=== PATIENT | female | born 1950 | race Caucasian/White ===

== ENCOUNTER 2016-10-21 01:39 | Emergency (ER) | payer OTHER ==
--- NOTE | 2016-10-21 04:57 | ED ORDER SUMMARY ---
..... Patient: LARRY DONOHUE OrderSheet [facility] VisitID: [id number] [place] [address] 66y, F Registration Date/Time: 10/21/2016 ORDER SHEET Weight: 61.6 kg (stated) Allergies: No Known Drug Allergy GENERAL ORDERS: Chest 1V Urgent (02:10/21/2016 HSoule per protocol) (2:12 RKaruga) Risk Prevention Engineer (Continuous) (chest pain ) (02:10/21/2016 HSoule per protocol) (2:07 HSoule) UA-Culture if indicated Urgent (02:10/21/2016 HSoule per protocol) (Ack 2:35 RKaruga) (4:03 HSoule) Cardiac Panel Stat (02:10/21/2016 HSoule per protocol) (Ack 2:35 RKaruga) (4:03 HSoule) Amylase Urgent (02:10/21/2016 HSoule per protocol) (Ack 2:35 RKaruga) (4:03 HSoule) Lipase Urgent (02:10/21/2016 HSoule per protocol) (Ack 2:35 RKaruga) (4:03 HSoule) PT with INR Urgent (02:07 10/21/2016 HSoule per protocol) (Ack 2:35 RKaruga) (4:03 HSoule) EKG - ER Stat (02:10/21/2016 HSoule per protocol) (2:07 HSoule) Pulse oximeter (02:07 10/21/2016 HSoule per protocol) (2:07 HSoule) POC Glucose (02:10/21/2016 HSoule per protocol) (2:07 HSoule) D-Dimer Urgent (02:19 10/21/2016 Sarah Neal) (Ack 2:35 RKaruga) (4:03 HSoule) CTA Thorax/Abdomen/Pelvis (Yes) (1.1) Urgent (02:34 10/21/2016 Sraah Neal) (Ack 2:35 RKaruga) (3:10 RFay) MEDICATION ORDERS: - (Magnesium Oxide 400 mg PO x 1 now) (02:37 10/21/2016 Sarah Neal) (Ack 2:41 HSoule) (3:11 HSoule) Acetaminophen PO 1,000 mg (NOW) (03:35 10/21/2016 Sarah Neal) (Ack 3:47 HSoule) (Cancelled: Patient Refusal5:52 HSoule) IV FLUIDS: Zofran IV 4 mg (NOW) (02:07 10/21/2016 HSoule per protocol) (2:08 HSoule) IV Saline Lock (02:07 10/21/2016 HSoule per protocol) (2:08 HSoule) Labetalol IV 20 mg (HIGH ALERT MEDICATION, NOW) (02:09 10/21/2016 Sarah Neal) (Ack 2:18 HSoule) (2:22 HSoule) Zofran IV 4 mg (NOW) (02:36 10/21/2016 Sarah Neal) (Ack 2:36 HSoule) (2:41 HSoule) Morphine IV 4 mg (HIGH ALERT MEDICATION, NOW) (02:43 10/21/2016 Sarah Neal) (Ack 3:11 HSoule) (3:11 HSoule) Labetalol IV 20 mg (HIGH ALERT MEDICATION, NOW) (03:35 10/21/2016 Sarah Neal) (Ack 3:47 HSoule) (3:59 HSoule) ORDER SHEET NOTES: [Electronically signed by Jenna Abel (05:52 10/21/2016)] [Electronically signed by Oswaldo Baker Dr. (08:39 10/22/2016)] [Electronically locked/signed by Jenna Abel (05:52 10/21/2016)]
--- NOTE | 2016-10-21 04:57 | ED CLINICAL REPORT ---
Clinical Report - Physicians/Mid Levels [facility] [address] [place] [address] 10/21/2016 1:41 Patient: LARRY DONOHUE Time Seen: 02:01; initial patient contact. Arrived- By private vehicle. Historian- patient. HISTORY OF PRESENT ILLNESS Chief Complaint: CHEST PAIN. At its maximum, severity described as moderate. When seen in the E.D., severity described as moderate. Modifying factors- worsened by food. Not relieved by anything. This started about 5 days ago and is still present. It was gradual in onset. The patient cannot recall the circumstances at the onset. It is described as "pain". No radiation. It is described as located in the epigastric area. The patient has had nausea and vomiting. No difficulty breathing or diaphoresis. Similar symptoms previously: None. Recent medical care: Not recently seen/assessed. REVIEW OF SYSTEMS No fever, chills, pedal edema or calf pain. She has had moderate, crampy, intermittent abdominal pain. The pain is described as generalized. All systems otherwise negative, except as recorded above. PAST HISTORY Diabetes Mellitus. ADDITIONAL SURGERIES: Bariatric Surgery. Cholecystectomy. Hip Surgery. Shoulder Surgery. Medications: None. Allergies: No Known Drug Allergy. SOCIAL HISTORY Former smoker. No alcohol use or drug use. ADDITIONAL NOTES The nursing notes have been reviewed. PHYSICAL EXAM Vital Signs: 10/21/2016 01:43 BP: 212/95. HR: 66. RR: 20. O2 saturation: 97%. Temp: 98.3 F. Pain level now: 10. Have been reviewed. Hypertensive. Heart rate normal. Respiratory rate normal. Temperature normal. Oxygen saturation normal. Appearance: Alert. Oriented X3. No acute distress. Eyes: Eyes normal inspection. ENT: Pharynx normal. Neck: Normal inspection. No JVD. CVS: Normal heart rate and rhythm. Heart sounds normal. Pulses normal. Respiratory: No respiratory distress. Breath sounds normal. Abdomen: Soft and nontender. Bowel sounds normal. No organomegaly. No mass. Skin: Skin warm and dry. Normal skin color. Extremities: No calf tenderness. No lower extremity edema. Neuro: Oriented X 3. LABS, X-RAYS, AND EKG EKG: EKG time: (0156). No acute process. No acute ischemia. Normal EKG. Normal sinus rhythm. Rate: 64. Normal P waves. Normal ALMA ROSA. Normal QRS complex. Normal axis. Normal ST and T waves, QT and QTc. Prior EKG unavailable. The study has been interpreted contemporaneously by me. The study has been independently viewed by me. The EKG appears to be a good tracing. Interpretation time: 0156. Chest X-ray: No acute disease. Moderate hyperinflation present on the right and left with flattening of the diaphragm. Consistent with COPD. No infiltrate. Views: AP. Technique: good. The X-rays were independently viewed by me and interpreted contemporaneously by me. Prior films were not available for comparison. Chest CT: (Abd and pelvis: No PE, dissection, or aneurysm. Mild ascites. Gastroenteritis). Chest CT performed with contrast. The study was independently viewed by me, interpreted by the radiologist and discussed with the radiologist. Prior studies were not available for comparison. Laboratory Tests: UA-Culture if indicated: (KRAIG: 10/21/2016 03:40) ( MsgRcvd 10/21/2016 04:01) Final results Test Result Flag Units (Reference) URINE COLOR YELLOW URINE APPEARANCE CLEAR URINE GLUCOSE NEGATIVE (NEGATIVE) URINE BILIRUBIN NEGATIVE (NEGATIVE) URINE KETONE NEGATIVE (NEGATIVE) URINE SPECIFIC GRAVITY 1.020 (1.010-1.030) URINE PH 6.0 (5.0-8.0) URINE PROTEIN 3+ (NEGATIVE) URINE UROBILINOGEN 0.2 EU/dL (0.2-1.0) URINE NITRITE NEGATIVE (NEGATIVE) URINE BLOOD 2+ (NEGATIVE) URINE LEUK ESTERASE NEGATIVE (NEGATIVE) URINE RBC 1-3 rbc/hpf (0-1) URINE WBC 0-1 wbc/hpf (0-1) URINE EPITHELIAL CELLS 0-1 EPI/hpf (0-5) URINE BACTERIA NONE SEEN (NONE SEEN) URINE COMMENT CULT NOT INDICATED URINE CULTURES ARE SET-UP BASED ON THE FOLLOWING CRITERIA:POSITIVE NITRITEPOSITIVE LEUKOCYTE ESTERASEGREATER THAN 10 WHITE BLOOD CELLSMODERATE (2+) OR GREATER BACTERIA CBC w Diff: (KRAIG: 10/21/2016 02:00) ( MsgRcvd 10/21/2016 02:23) Final results Test Result Flag Units (Reference) WHITE BLOOD COUNT 8.1 K/uL (4.5-11.5) RED BLOOD COUNT 4.16 M/uL (4.00-5.20) HEMOGLOBIN 10.9 L gm/dL (12.0-16.0) HEMATOCRIT 32.8 L % (36.0-46.0) MEAN CELL VOLUME 79 L fL (80-100) MEAN CORPUSCULAR HGB 26 pg (26-34) MEAN CORPUSCULAR HGB CONC 33 g/dL (31-37) RED CELL DISTRIBUTION WIDTH 16.1 H % (11.6-14.8) PLATELET COUNT 181 K/uL (150-400) NEUTROPHIL % 70.0 % (50-75) LYMPH % 22.2 L % (25-40) MONO % 6.8 % (3-14) EOSINOPHIL % 0.7 % (0-4) BASOPHIL % 0.3 % (0-2) [id number]: (KRAIG: 10/21/2016 02:00) ( [facility] [place]:33) Final results Test Result Flag Units (Reference) D-DIMER QUANTITATIVE 1.27 H ug/mLFEU (0.27-0.52) The primary value of this quantitative assay relates toits negative predictive value (i.e. exclusion) of pulmonaryembolism/deep vein thrombosis/DIC.Elevated levels of d-dimer may also occur with:, age, cancer, inflammation, liver disease,post-op, infection, hematoma, coronary disease, peripheralarteriopathy, bleeding disorders and thrombolytic treatment.Results should be correlated with other clinical andradiological data.Testing Methodology: Latex Immunoassay PT with INR: (KRAIG: 10/21/2016 02:00) ( [facility] [place] 10/21/2016 02:23) Final results Test Result Flag Units (Reference) INR 0.9 (0.8-1.2) Low Intensity Therapy: INR 1.5-2.0 PT range 18.5-23.1Mod.Intensity Therapy: INR 2.0-3.0 PT range 23.1-31.5High Intensity Therapy: INR 2.5-3.5 PT range 27.4-35.5High Intensity Therapy 2: INR 3.0-4.0 PT range 31.5-39.3 Lipase: (KRAIG: 10/21/2016 02:00) ( MsgRcvd 10/21/2016 02:48) Final results Test Result Flag Units (Reference) LIPASE 93 U/L (73-393) AMYLASE 74 U/L (25-115) CHEM 13 PANEL: (KRAIG: 10/21/2016 02:00) ( MsgRcvd 10/21/2016 02:33) Final results Test Result Flag Units (Reference) GLUCOSE 177 H mg/dL (70-110) BUN 19 H mg/dL (7-18) CREATININE 1.1 mg/dL (0.6-1.3) Estimated GFR 52.82 mL/min Estimated GFR- >60 mL/min Note: Persistent reduction over 3 months in eGFR<60 mL/min/1.73 m2 defines CKD. Patients with eGFR values>=60 mL/min/1.73 m2 may also have CKD if evidence ofpersistent proteinuria. Additional information may be foundat www.kidney.org. SODIUM 140 mmol/L (136-145) POTASSIUM 3.8 mmol/L (3.5-5.1) CHLORIDE 107 mmol/L (98-107) CARBON DIOXIDE 24 mmol/L (21-32) CALCIUM 7.7 L mg/dL (8.5-10.1) TOTAL PROTEIN 5.7 L g/dL (6.4-8.2) ALBUMIN 2.3 L g/dL (3.3-5.0) BILIRUBIN, TOTAL 0.3 mg/dL (0.0-1.0) ALKALINE PHOSPHATASE 241 H U/L (46-116) AST (SGOT) 28 U/L (15-37) ALT (SGPT) 25 U/L (12-78) MAGNESIUM 1.5 L mg/dL (1.8-2.4) CPK 153 U/L (24-260) TROPONIN I <0.05 ng/mL (0.00-1.5) TROPONIN REFERENCE RANGE:<0.1 NEGATIVE0.1-1.5 INDETERMINANT>1.5 POSITIVE . PROGRESS AND PROCEDURES Disposition: Discharged home in good and improved condition. Condition: good. CLINICAL IMPRESSION Chest wall pain .12 lead EKG performed. Uncontrolled essential hypertension. INSTRUCTIONS Follow a low salt diet. Your Current Medications: CONTINUE TAKING THE FOLLOWING MEDICATIONS: None*. Prescription Medications: Hydrocodone/APAP 5mg / 325mg: take 1 orally every 6 hours as needed for pain. Dispense twelve (12). No refill. Zofran (orally disintegrating tablets) 4 mg: take 1 orally every 6 hours as needed for nausea and vomiting. Dispense ten (10). No refill. Substitution is permissible. Amlodipine 5 mg: take 1 orally every 24 hours. Dispense fifteen (15). No refills. Lomotil: take 2 tablets orally every 6 hours as needed for control of diarrhea until symptoms resolve. Do not take more than 8 tablets per day. Dispense sixteen (16). No refills. Substitution is permissible. Follow-up: Follow up with your doctor in about two days. Call for an appointment. Screening today revealed the patient's blood pressure to be in the hypertensive range. The patient should follow up with a primary care provider for blood pressure management. (Electronically signed by Oswaldo Baker Dr. 10/22/2016 8:39)
--- NOTE | 2016-10-21 04:57 | ED ORDER SUMMARY ---
..... Patient: LARRY DONOHUE OrderSheet [facility] VisitID: [id number] [place] [address] 66y, F Registration Date/Time: 10/21/2016 ORDER SHEET Weight: 61.6 kg (stated) Allergies: No Known Drug Allergy GENERAL ORDERS: Chest 1V Urgent (02:10/21/2016 HSoule per protocol) (2:12 RKaruga) Assistant Men'S Lacrosse Coach (Continuous) (chest pain ) (02:10/21/2016 HSoule per protocol) (2:07 HSoule) UA-Culture if indicated Urgent (02:10/21/2016 HSoule per protocol) (Ack 2:35 RKaruga) (4:03 HSoule) Cardiac Panel Stat (02:10/21/2016 HSoule per protocol) (Ack 2:35 RKaruga) (4:03 HSoule) Amylase Urgent (02:10/21/2016 HSoule per protocol) (Ack 2:35 RKaruga) (4:03 HSoule) Lipase Urgent (02:10/21/2016 HSoule per protocol) (Ack 2:35 RKaruga) (4:03 HSoule) PT with INR Urgent (02:07 10/21/2016 HSoule per protocol) (Ack 2:35 RKaruga) (4:03 HSoule) EKG - ER Stat (02:10/21/2016 HSoule per protocol) (2:07 HSoule) Pulse oximeter (02:07 10/21/2016 HSoule per protocol) (2:07 HSoule) POC Glucose (02:10/21/2016 HSoule per protocol) (2:07 HSoule) D-Dimer Urgent (02:19 10/21/2016 Sarah Neal) (Ack 2:35 RKaruga) (4:03 HSoule) CTA Thorax/Abdomen/Pelvis (Yes) (1.1) Urgent (02:34 10/21/2016 Sarah Neal) (Ack 2:35 RKaruga) (3:10 RFay) MEDICATION ORDERS: - (Magnesium Oxide 400 mg PO x 1 now) (02:37 10/21/2016 Sarah Neal) (Ack 2:41 HSoule) (3:11 HSoule) Acetaminophen PO 1,000 mg (NOW) (03:35 10/21/2016 Sarah Neal) (Ack 3:47 HSoule) (Cancelled: Patient Refusal5:52 HSoule) IV FLUIDS: Zofran IV 4 mg (NOW) (02:07 10/21/2016 HSoule per protocol) (2:08 HSoule) IV Saline Lock (02:07 10/21/2016 HSoule per protocol) (2:08 HSoule) Labetalol IV 20 mg (HIGH ALERT MEDICATION, NOW) (02:09 10/21/2016 Sarah Neal) (Ack 2:18 HSoule) (2:22 HSoule) Zofran IV 4 mg (NOW) (02:36 10/21/2016 Sarah Neal) (Ack 2:36 HSoule) (2:41 HSoule) Morphine IV 4 mg (HIGH ALERT MEDICATION, NOW) (02:43 10/21/2016 Sarah Neal) (Ack 3:11 HSoule) (3:11 HSoule) Labetalol IV 20 mg (HIGH ALERT MEDICATION, NOW) (03:35 10/21/2016 Sarah Neal) (Ack 3:47 HSoule) (3:59 HSoule) ORDER SHEET NOTES: [Electronically signed by Jenna Abel (05:52 10/21/2016)] [Electronically signed by Oswaldo Baker Dr. (08:39 10/22/2016)] [Electronically locked/signed by Jenna Abel (05:52 10/21/2016)]
--- NOTE | 2016-10-21 04:57 | ED NURSING NOTES ---
Clinical Report - Nurses [facility] [address] [place] [address] 10/21/2016 1:41 Patient: LARRY DONOHUE [facility] [id number] TRIAGE Triage time 01:43 Oct 21 2016. Acuity: LEVEL 2. Chief Complaint: (Chest pain/abdominal pain). SEPSIS SCREEN: Sepsis Screen: negative. Negative (no infection suspected/documented). YAMILET COMA SCORE: Yamilet Coma Scale: 15- eyes open spontaneously (4); best verbal response- oriented x 4 (5); best motor response- obeys commands (6). --01:47 Jenna Abel 01:43 10/21/16. BP: 212/95 taken on the left arm. HR: 66. RR: 20. O2 saturation: 97% on room air. Temp: 98.3 F (oral). Pain level now: 10. --01:47 Jenna Abel 01:47 10/21/16. BP: 181/107 taken on the right arm. --01:47 Jenna Abel. Weight: 61.6 kg stated. Height/Length: 66 inches Per Patient. BMI: 21.9. --01:45 Jenna Abel. Medications None. --01:44 Jenna Abel. Medication/allergy information source: the patient. --01:47 Jenna Abel. Allergies No Known Drug Allergy. --01:45 Jenna Abel. History Arrived by private vehicle. Historian: patient. Unaccompanied. Primary physician (darlyn). Onset. (5 days). ( Patient reports pain from her neck to her pelvic area. She reports the pain as severe and accompanied by vomiting. She reports being unable to keep anything down. She denies cardiac history.). She has had severe vomiting. PAST MEDICAL HX: Immunizations: up-to-date. The patient is post-menopausal. SOCIAL HX: Former smoker, end date 1991. No alcohol use. No infectious disease exposure. ABUSE ASSESSMENT: No report of abuse. FALL RISK ASSESSMENT: Fall risk assessment completed. No fall risk identified. NUTRITIONAL RISK ASSESSMENT: The nutritional risk assessment revealed no deficiencies. FUNCTIONAL ASSESSMENT: Functional assessment: no impairments noted. LEARNING NEEDS ASSESSMENT: The learning needs assessment revealed no barriers. SKIN INTEGRITY ASSESSMENT: Skin integrity risk assessment completed. No skin integrity risk identified. --01:47 Jenna Abel. PROBLEMS: Diabetes Mellitus. --01:45 Jenna Abel. ADDITIONAL SURGERIES: Bariatric Surgery. Cholecystectomy. Hip Surgery. Shoulder Surgery. --01:45 Jenna Abel. Interventions ID band on patient. To treatment room. --01:47 Jenna Abel. PHYSICAL ASSESSMENT 02:06 10/21/16. Ambulatory to room. Patient gowned. GENERAL / NEURO / PSYCH: Alert. Oriented X 4. Appears in pain. HEENT: No facial asymmetry noted. Mucous membranes are pink. RESPIRATORY: Respirations not labored. CVS: Normal sinus rhythm noted. GI / : Abdomen nontender. Abdominal tenderness diffusely. Guarding present. SKIN: Skin is warm and dry. ( petechia and bruising present on arms.). --02:06 Jenna Abel. NURSING PROGRESS NOTES 01:58 10/21/2016 Site #1 started via IV in the left forearm with an 20g angiocath, with aseptic technique and good blood return; one attempt. Blood drawn: rainbow set. Labeled in the presence of the patient and sent to the lab. Saline lock flushed with 10 mL saline. --02:08 Jenna Abel 02:08 10/21/2016 Zofran (Ondansetron HCl) IVP 4 mg given over 2 minute(s) via site #1. Allergies verified and confirmed 5 rights. IV patency established. IV site checked: no pain, redness, or swelling. IV flushed thoroughly pre- and post-medication administration. IVP given by RN. --02:08 Jenna Abel ( POC glucose 196 mg/dl). --02:08 Jenna Abel 02:23 10/21/16. BP: 210/62. --02:23 Jenna Abel 02:10 10/21/16. The initial plan of care for this patient has been created. Oxygen administered by nasal cannula at 2 liters. Pulse oximeter and NIBP monitor placed on patient; monitor alarms on. Patient gowned. Two patient identifiers checked. Call light placed in reach. Side rails up x 1. Bed placed in lowest position. Brakes of bed on. Patient ready for evaluation- chart flagged and ED physician notified. ( Provider notified of patient vitals and pain.). --02:23 Jenna Abel 02:22 10/21/2016 Labetalol IVP 20 mg given over 2 minute(s) via site #1. Allergies verified and confirmed 5 rights. IV patency established. IV site checked: no pain, redness, or swelling. IV flushed thoroughly pre- and post-medication administration. IVP given by RN. --02:22 Jenna Abel 02:23 10/21/16. BP: 166/70. HR: 62. RR: 18. O2 saturation: 98% on nasal cannula at 2 liters/minute. --02:24 Jenna Abel 02:36 10/21/16. BP: 173/64. HR: 73. RR: 20. O2 saturation: 100% on room air. Pain level now: 11/26. --02:37 Jenna Abel 02:41 10/21/2016 Zofran (Ondansetron HCl) IVP 4 mg given over 2 minute(s) via site #1. Allergies verified and confirmed 5 rights. IV patency established. IV site checked: no pain, redness, or swelling. IV flushed thoroughly pre- and post-medication administration. IVP given by RN. --02:41 Jenna Abel EKG time: (1:56 AM). EKG was performed by a tech and shown to the ED physician. --02:46 Maryuri Saldana 02:56 10/21/2016 Morphine IVP 4 mg given over 2 minute(s) via site #1. Allergies verified, confirmed 5 rights and sedative warning given to the patient. IV patency established. IV site checked: no pain, redness, or swelling. IV flushed thoroughly pre- and post-medication administration. IVP given by RN. --03:11 Jenna Abel 03:11 10/21/2016 Magnesium Hydroxide PO Tablets 400 Capsule given. Allergies verified and confirmed 5 rights. --03:11 Jenna Abel Patient returned from CT by stretcher with tech. (03:12 Oct 21 2016). --03:12 Jenna Abel 03:13 10/21/16. BP: 184/72. HR: 62. RR: 18. O2 saturation: 98% on room air. Pain level now: 10/27. --03:15 Jenna Abel Patient ID band checked for patient name and birthdate: patient confirmed. Instructions provided to collect clean catch urine and patient verbalized understanding. Clean catch urine collected with return of yellow-colored clear urine; sample sent to lab for urinalysis, culture and drug screen. Specimen labeled in the presence of the patient. --03:48 Jenna Abel 03:55 10/21/16. BP: 195/74. HR: 62. RR: 20. O2 saturation: 99% on room air. Pain level now: 12/27. --03:56 Jenna Abel ( Provider aware of patient vitals. Patient given pillows and blankets for comfort, lights dimmed.). --03:56 Jenna Abel 03:59 10/21/2016 Labetalol IVP 20 mg given over 2 minute(s) via site #1. Allergies verified and confirmed 5 rights. IV patency established. IV site checked: no pain, redness, or swelling. IV flushed thoroughly pre- and post-medication administration. IVP given by RN. --03:59 Jenna Abel 03:59 10/21/16. BP: 152/78. HR: 66. RR: 20. O2 saturation: 99% on room air. Pain level now: 12/27. --03:59 Jenna Abel 04:37 10/21/16. BP: 140/56. HR: 60. RR: 20. O2 saturation: 100% on room air. Pain level now: 08/27. --04:38 Jenna Abel ( Patient assisted to her side. Patient having nausea. Declines Tylenol at this time.). --04:38 Jenna Abel 05:23 10/21/2016 Site #1 removed upon discharge. Catheter intact. Bandaid applied. --05:23 Jenna Abel. DISPOSITION / DISCHARGE 05:00 10/21/16. Condition at departure: stable. The goals identified in the patient's plan of care were met. FALL RISK ASSESSMENT: Fall risk assessment completed. No fall risk identified. --05:00 Jenna Abel 04:59 10/21/16. BP: 170/57. HR: 60. RR: 20. O2 saturation: 100%. Temp: 98.8 F (oral). Pain level now: 09/26. --05:00 Jenna Abel No learning barriers present. Discharge instructions provided and reviewed with the patient. Reviewed warnings (Do not drive while on sedative medications). Reviewed medication(s) side effects, precautions, dosing and course information. Prescription(s) given to the patient. Reviewed need for increased fluid intake. Patient verbalized understanding. Written instructions provided in Greenlandic. ( Follow up with your PCP in two days. Discuss your new medications with your PCP. Monitor your blood pressure at home. Prescription was given to obtain a blood pressure monitor for home. Increase your fluids and follow a soft diet until better. You should reduce sodium intake to assist in a healthy blood pressure. Patient verbalized understanding and had no additional questions at this time.). The patient was discharged by the physician. She was discharged home and accompanied by broom machine operator. She left the Emergency Department ambulatory and via private vehicle. Environmental Emergencies Assistant driving. --05:29 Jenna Abel 05:23 10/21/16. BP: 158/55. HR: 60. RR: 20. O2 saturation: 100% on room air. Pain level now: 10/27. --05:29 Jenna Abel. Locked/Released at 10/21/2016 5:52 by Jenna Abel,
--- NOTE | 2016-10-21 08:20 | DIAGNOSTIC IMAGING REPORT ---
PROCEDURE: CTA THORAX ABDOMEN PELVIS INDICATION: AAA back pain and abdominal pain TECHNIQUE: 120 ml of Isovue 370 was injected intravenously and axial images were obtained of the chest, abdomen, and pelvis with 3D sagittal and coronal MIP reconstructions. COMPARISON: None. FINDINGS: Thoracic aorta is normal caliber with mild arch atherosclerotic calcification. No evidence of aneurysm, dissection, ulceration, or hematoma. Normal great vessels and pulmonary arterial tree. Heart size at the upper limits of normal. No pericardial effusion. Mild emphysematous changes bilaterally. Minor bibasilar atelectatic change. No adenopathy or mediastinal masses. The esophagus is normal in caliber without hiatal hernia. The airway is patent and branches normally. No pleural effusions or pneumothorax. Osseous structures are intact. The abdominal aorta is normal in course, contour, and caliber with mild mixed calcified and noncalcified atherosclerosis. Renal arteries and superior mesenteric arteries are patent. The inferior mesenteric artery is visible and patent. Iliac bifurcations appear normal. The liver is enlarged. The caudate lobe is hypertrophic. The parenchyma is minimally heterogeneous. Gallbladder surgically absent. There are surgical changes of gastric bypass. Innumerable cysts are seen throughout each kidney. The spleen is slightly enlarged measuring 13.9 cm. The pancreas is diminutive. There is a ventral abdominal wall hernia defect just to the right of midline with a neck measuring about 11 mm. The hernia sac contains fat and fluid. Nonspecific, mild circumferential wall thickening involving the retrocolic rule , and other loops of bowel in the anterior abdomen. Slight nonspecific wall thickening involving the proximal colon. No significant focal inflammation or obstruction. Increased retained stool in the proximal colon. Multiple mildly prominent mesenteric lymph nodes but no bulky adenopathy. No retroperitoneal adenopathy. The uterus is surgically absent. Right hip arthroplasty and left hip pinning changes. A small amount of pelvic ascites. No suspicious mass. Demineralized osseous structures. IMPRESSION: 1. No evidence of acute aortic pathology. 2. Mild emphysema. 3. Heart size at the upper limits of normal. 4. Changes of mild cirrhosis with portal hypertension including mild ascites. 5. Status post cholecystectomy, gastric bypass, right hip arthroplasty, left hip pinning, hysterectomy. 6. Fat and fluid containing ventral abdominal hernia. 7. Mild wall thickening involving small and large bowel loops is nonspecific and may indicate enterocolitis or be reactive secondary to the presence of ascites. Correlate clinically. 8. [facility].
--- NOTE | 2016-10-21 08:24 | DIAGNOSTIC IMAGING REPORT ---
PROCEDURE: XR CHEST 1 VIEW INDICATION: CHEST PAIN TECHNIQUE: Single view chest. 02:14 hours COMPARISON: None. FINDINGS: The cardiomediastinal contour and central vasculature are normal. The lungs are mildly hyperlucent clear without focal consolidation, pleural effusion or pneumothorax. The osseous structures are mildly demineralized. 7 mm nodular density in the right mid lung corresponds to a bone island seen on the subsequent CT scan. IMPRESSION: 1. No evidence of acute cardiopulmonary disease. 2. Mild emphysema. 3. Sclerotic rib bone island projecting over the right mid lung.
--- NOTE | 2016-10-22 08:39 | ED MAR SUMMARY ---
..... Medication Administration Record [facility] [address] [place] [address] Patient: LARRY DONOHUE Visit ID: [id number] 66y, F Weight: 61.6 kg Height/Length: 66 in BMI: 21.9 ALLERGIES: No Known Drug Allergy Given 02:08 10/21/2016 Jenna Abel, Medication Administered: ZOFRAN [IVP] (ONDANSETRON HCL), Dose: 4 mg IVP over 2 minute(s), Site: #1 left forearm. Medication Ordered: Zofran IV 4 mg (NOW). Given 02:22 10/21/2016 Jenna Abel, Medication Administered: LABETALOL [IVP], Dose: 20 mg IVP over 2 minute(s), Site: #1 left forearm. Medication Ordered: Labetalol IV 20 mg (HIGH ALERT MEDICATION, NOW). Given 02:41 10/21/2016 Jenna Abel, Medication Administered: ZOFRAN [IVP] (ONDANSETRON HCL), Dose: 4 mg IVP over 2 minute(s), Site: #1 left forearm. Medication Ordered: Zofran IV 4 mg (NOW). Given 02:56 10/21/2016 Jenna Abel, Medication Administered: MORPHINE [IVP], Dose: 4 mg IVP over 2 minute(s), Site: #1 left forearm. Medication Ordered: Morphine IV 4 mg (HIGH ALERT MEDICATION, NOW). Given 03:11 10/21/2016 Jenna Abel, Medication Administered: MAGNESIUM HYDROXIDE [PO], Dose: 400 Capsule Tablets PO. Medication Ordered: - (Magnesium Oxide 400 mg PO x 1 now). Given 03:59 10/21/2016 Jenna Abel, Medication Administered: LABETALOL [IVP], Dose: 20 mg IVP over 2 minute(s), Site: #1 left forearm. Medication Ordered: Labetalol IV 20 mg (HIGH ALERT MEDICATION, NOW).
--- NOTE | 2016-10-22 08:39 | ED MED RECONCILIATION SUMMARY ---
Patient: LARRY DONOHUE Medication Reconciliation Report [facility] VisitID: [id number] [place] [address] 66y, F Registration Date/Time: 10/21/2016 Weight: 61.6 kg Height/Length: 66 in. BMI: 21.9 ALLERGIES: No Known Drug Allergy The patient's Home Medications are listed below: NONE. The source(s) of the original Home Medication information: patient The following Medications were given to the patient in the Emergency Department: Zofran [IVP] IVP 4 mg, administered: 10/21/2016 2:08:00 AM Labetalol [IVP] IVP 20 mg, administered: 10/21/2016 2:22:00 AM Zofran [IVP] IVP 4 mg, administered: 10/21/2016 2:41:00 AM Magnesium Hydroxide [PO] PO 400 Capsule, administered: 10/21/2016 3:11:00 AM Morphine [IVP] IVP 4 mg, administered: 10/21/2016 2:56:00 AM Labetalol [IVP] IVP 20 mg, administered: 10/21/2016 3:59:00 AM The following Medications were prescribed to the patient: Hydrocodone/APAP 5mg / 325mg: take 1 orally every 6 hours as needed for pain. Dispense twelve (12). No refill. -- Oswaldo Baker Dr. Zofran (orally disintegrating tablets) 4 mg: take 1 orally every 6 hours as needed for nausea and vomiting. Dispense ten (10). No refill. Substitution is permissible. -- Oswaldo Baker Dr. Amlodipine 5 mg: take 1 orally every 24 hours. Dispense fifteen (15). No refills. -- Oswaldo Baker Dr. Lomotil: take 2 tablets orally every 6 hours as needed for control of diarrhea until symptoms resolve. Do not take more than 8 tablets per day. Dispense sixteen (16). No refills. Substitution is permissible. -- Oswaldo Baker Dr.
--- NOTE | 2016-10-22 08:39 | ED DISCHARGE INSTRUCTIONS ---
Patient: LARRY DONOHUE General Instructions [facility] VisitID: [id number] [place] [address] 66y, F Registration Date/Time: 10/21/2016 Chest wall pain .12 lead EKG performed. Uncontrolled essential hypertension. INSTRUCTIONS Follow a low salt diet. Your Current Medications: CONTINUE TAKING THE FOLLOWING MEDICATIONS: None*. Prescription Medications: Hydrocodone/APAP 5mg / 325mg: take 1 orally every 6 hours as needed for pain. Dispense twelve (12). No refill. Zofran (orally disintegrating tablets) 4 mg: take 1 orally every 6 hours as needed for nausea and vomiting. Dispense ten (10). No refill. Substitution is permissible. Amlodipine 5 mg: take 1 orally every 24 hours. Dispense fifteen (15). No refills. Lomotil: take 2 tablets orally every 6 hours as needed for control of diarrhea until symptoms resolve. Do not take more than 8 tablets per day. Dispense sixteen (16). No refills. Substitution is permissible. Follow-up: Follow up with your doctor in about two days. Call for an appointment. Screening today revealed the patient's blood pressure to be in the hypertensive range. The patient should follow up with a primary care provider for blood pressure management. ADDITIONAL INFORMATION High Blood Pressure -- New (Begin Tx) Your blood pressure was high enough today to start treatment with medicines. The cause of hypertension is unknown in most cases, but can be controlled with lifestyle changes and/or medicines. Hypertension may cause headache, dizziness, blurred vision, rushing sound in your ears, chest pain or shortness of breath. Sometimes it causes no symptoms at all. However, untreated hypertension increases the risk of heart attack, also known as acute myocardial infarction, or AMI, and stroke. It is a serious health risk and should not be ignored. A normal blood pressure is 120/80 or less. The first (top) number is the "systolic" pressure. The second (bottom) number is the "diastolic" pressure. Hypertension exists when either the top number is 140 or higher, OR the bottom number is 90 or higher on repeated measurements. Home Care: All patients with hypertension should do the following to lower their pressure. If you are on medicines, then these methods may reduce or eliminate your need for medicine in the future. Begin a weight loss program if you are overweight. Reduce your salt intake. Avoid high salt foods (olives, pickles, smoked meats, salted potato chips, etc.). Do not add salt to your food at the table. Use only small amounts of salt when cooking. Begin an exercise program. Discuss with your doctor what type of exercise program would be best for you. It doesn't have to be difficult. Even brisk walking for 20 minutes three times a week is a good form of exercise. Avoid medicines which contain heart stimulants. This includes many cold and sinus decongestant pills and sprays as well as diet pills. Check the warnings about hypertension on the label. Stimulants such as amphetamine or cocaine could be lethal for someone with hypertension. Never take these. Limit your caffeine intake or switch to caffeine-free products. Stop smoking. If you are a long-time smoker, this can be hard. Enroll in a stop-smoking program to improve your chance of success. Talk to your physician about ways to improve your chance of success. Learning how to handle stress better is an important part of any program to lower blood pressure. Learn about relaxation methods such as meditation, yoga, or biofeedback. If medicines were prescribed, take them exactly as directed. Missing doses may cause your blood pressure to get out of control. Consider buying an automatic blood pressure machine (available at many pharmacies). Use this to monitor your blood pressure and report to your doctor. Follow Up: Because a new blood pressure medicine was started today, it is important that you have your blood pressure rechecked to be sure you are responding well and that there are no serious side effects. Unless told otherwise, follow-up with your doctor or this facility within the next THREE DAYS. Get Prompt Medical Attention if any of the following occur: Chest pain or shortness of breath Severe headache Throbbing or rushing sound in the ears Nosebleed Sudden severe abdominal pain Extreme drowsiness, confusion or fainting Dizziness or vertigo (dizziness with spinning sensation) Weakness of an arm or leg or one side of the face Difficulty with speech or vision Low-Salt Diet (2 Grams/Day) This diet eliminates foods that are high in salt and restricts the amount of salt that you cook with. It is most often used for patients with high blood pressure, edema (fluid retention), kidney, liver, and heart disease. Table salt contains the mineral sodium. The body needs sodium to work normally. But too much sodium can make your health problems worse. Your healthcare provider is recommending a low-salt (also called low-sodium) diet for you. Your total daily allowance of salt (sodium) is 2 grams. This equals 2,000 milligrams (mg). It is less than 1 teaspoon of table salt. This means you can have only about 700 mg of sodium at each meal. When you cook, limit the salt you use. And if you can avoid using salt, even better. Do not add salt at the table. So, throw away the saltshaker! When shopping, read the package labels. Salt is often called sodium on the label. Choose foods that are Salt-Free, Low Salt, or Very Low Salt. Note that foods with Reduced Salt may notlower your salt intake enough. Beverages OK: Tea, coffee, carbonated beverages, juices AVOID: Flavored international coffees, electrolyte replacement drinks, sports beverages Bread & Cereals OK: All regular bread, rolls, cereals, cakes; low-salt crackers, matzoh crackers AVOID: Salted crackers, pretzels, popcorn; [place] citizen toast, pancakes, muffins Fruits & Desserts OK: Ice cream, frozen yogurt, juice bars, gelatin (Jell-O), cookies and pies, sugar, honey, jelly, hard candy AVOID: Most pies, cakes and cookies prepared or processed with salt, instant pudding Meats OK: All fresh meat, fish, poultry, low-salt tuna AVOID: Smoked, pickled, brine-cured, or salted meats or fish. Thisincludes higginbotham, chipped beef, corned beef, hot dogs, luncheon meats, ham, kosher meats, salt pork, sausage, canned tuna, salted codfish, smokedsalmon, aguilera, sardines, or anchovies. Dairy OK: Milk, chocolate milk, hot chocolate mix; eggs, Low Salt cheeses, yogurt, egg substitute AVOID: Processed cheese, cheese spreads, Roquefort, Camembert, and cottage cheese, buttermilk, instant breakfast drink Beans, Potatoes & Pasta OK: Dry beans, split peas, lentils, potatoes, rice, macaroni, noodles, spaghetti without added salt AVOID: Potato chips, tortilla chips, and similar products Soups OK: Low-salt soups and broths made with allowed foods AVOID: Bouillon cubes, soups with smoked or salted meats, regular soup and broth Vegetables OK: Most are okay; low-salt tomato and vegetable juices AVOID: Sauerkraut and other brine-soaked vegetables, pickles and other pickled vegetables, tomato juice, olives Seasoning & Spices OK: Most seasonings are okay. Good substitutes for salt include: fresh herb blends, Tabasco, lemon, garlic, juarez, vinegar, dry mustard, parsley, cilantro, horseradish, tomato paste, regular margarine, mayonnaise, butter, cream cheese, vegetable oil, cream, low-salt salad dressing and gravy AVOID: Regular ketchup, relishes, pickles, soy sauce, teriyaki sauce, Worcestershire sauce, BBQ sauce, tartar sauce, meat tenderizer, chili sauce, regular gravy, regular salad dressing Hydrocodone Bitartrate, Acetaminophen Oral tablet What is this medicine? ACETAMINOPHEN; HYDROCODONE (a set a MILTON suly fen; rosio droe KOE done) is a pain reliever. It is used to treat mild to moderate pain. How should I use this medicine? Take this medicine by mouth. Swallow it with a full glass of water. Follow the directions on the prescription label. If the medicine upsets your stomach, take the medicine with food or milk. Do not take more than you are told to take. Talk to your secretary regarding the use of this medicine in children. This medicine is not approved for use in children. What side effects may I notice from receiving this medicine? Side effects that you should report to your doctor or health career development associate as soon as possible: allergic reactions like skin rash, itching or hives, swelling of the face, lips, or tongue breathing problems confusion feeling faint or lightheaded, falls stomach pain yellowing of the eyes or skin Side effects that usually do not require medical attention (report to your doctor or health career development associate if they continue or are bothersome): nausea, vomiting stomach upset What may interact with this medicine? alcohol antihistamines isoniazid medicines for depression, anxiety, or psychotic disturbances medicines for sleep muscle relaxants naltrexone narcotic medicines (opiates) for pain phenobarbital ritonavir tramadol What if I miss a dose? If you miss a dose, take it as soon as you can. If it is almost time for your next dose, take only that dose. Do not take double or extra doses. Where should I keep my medicine? Keep out of the reach of children. This medicine can be abused. Keep your medicine in a safe place to protect it from theft. Do not share this medicine with anyone. Selling or giving away this medicine is dangerous and against the law. Store at room temperature between 15 and 30 degrees C (59 and 86 degrees F). Protect from light. Keep container tightly closed. Throw away any unused medicine after the expiration date. Discard unused medicine and used packaging carefully. Pets and children can be harmed if they find used or lost packages. What should I tell my health care provider before I take this medicine? They need to know if you have any of these conditions: brain tumor Crohn's disease, inflammatory bowel disease, or ulcerative colitis drink more than 3 alcohol-containing drinks per day drug abuse or addiction head injury heart or circulation problems kidney disease or problems going to the bathroom liver disease lung disease, asthma, or breathing problems an unusual or allergic reaction to acetaminophen, hydrocodone, other opioid analgesics, other medicines, foods, dyes, or preservatives or trying to get breast-feeding What should I watch for while using this medicine? Tell your doctor or health career development associate if your pain does not go away, if it gets worse, or if you have new or a different type of pain. You may develop tolerance to the medicine. Tolerance means that you will need a higher dose of the medicine for pain relief. Tolerance is normal and is expected if you take the medicine for a long time. Do not suddenly stop taking your medicine because you may develop a severe reaction. Your body becomes used to the medicine. This does NOT mean you are addicted. Addiction is a behavior related to getting and using a drug for a non-medical reason. If you have pain, you have a medical reason to take pain medicine. Your doctor will tell you how much medicine to take. If your doctor wants you to stop the medicine, the dose will be slowly lowered over time to avoid any side effects. You may get drowsy or dizzy when you first start taking the medicine or change doses. Do not drive, use machinery, or do anything that may be dangerous until you know how the medicine affects you. Stand or sit up slowly. There are different types of narcotic medicines (opiates) for pain. If you take more than one type at the same time, you may have more side effects. Give your health care provider a list of all medicines you use. Your doctor will tell you how much medicine to take. Do not take more medicine than directed. Call emergency for help if you have problems breathing. The medicine will cause constipation. Try to have a bowel movement at least every 2 to 3 days. If you do not have a bowel movement for 3 days, call your doctor or health career development associate. Too much acetaminophen can be very dangerous. Do not take Tylenol (acetaminophen) or medicines that contain acetaminophen with this medicine. Many non-prescription medicines contain acetaminophen. Always read the labels carefully. Ondansetron Oral disintegrating tablet What is this medicine? ONDANSETRON (on PAULINA se boris) is used to treat nausea and vomiting caused by chemotherapy. It is also used to prevent or treat nausea and vomiting after surgery. How should I use this medicine? These tablets are made to dissolve in the mouth. Do not try to push the tablet through the foil backing. With dry hands, peel away the foil backing and gently remove the tablet. Place the tablet in the mouth and allow it to dissolve, then swallow. While you may take these tablets with water, it is not necessary to do so. Talk to your secretary regarding the use of this medicine in children. Special care may be needed. What side effects may I notice from receiving this medicine? Side effects that you should report to your doctor or health career development associate as soon as possible: allergic reactions like skin rash, itching or hives, swelling of the face, lips, or tongue breathing problems dizziness fast or irregular heartbeat feeling faint or lightheaded, falls fever and chills swelling of the hands and feet tightness in the chest Side effects that usually do not require medical attention (report to your doctor or health career development associate if they continue or are bothersome): constipation or diarrhea headache What may interact with this medicine? Do not take this medicine with any of the following medications: -apomorphine -cisapride -dofetilide -dronedarone -pimozide -thioridazine -ziprasidone This medicine may also interact with the following medications: -carbamazepine -phenytoin -rifampicin -tramadol -other medicines that prolong the QT interval (cause an abnormal heart rhythm) What if I miss a dose? If you miss a dose, take it as soon as you can. If it is almost time for your next dose, take only that dose. Do not take double or extra doses. Where should I keep my medicine? Keep out of the reach of children. Store between 2 and 30 degrees C (36 and 86 degrees F). Throw away any unused medicine after the expiration date. What should I tell my health care provider before I take this medicine? They need to know if you have any of these conditions: heart disease history of irregular heartbeat liver disease low levels of magnesium or potassium in the blood an unusual or allergic reaction to ondansetron, granisetron, other medicines, foods, dyes, or preservatives or trying to get breast-feeding What should I watch for while using this medicine? Check with your doctor or health career development associate as soon as you can if you have any sign of an allergic reaction. Amlodipine Besylate Oral tablet What is this medicine? AMLODIPINE (am MILES barragan) is a calcium-channel selena. It affects the amount of calcium found in your heart and muscle cells. This relaxes your blood vessels, which can reduce the amount of work the heart has to do. This medicine is used to lower high blood pressure. It is also used to prevent chest pain. How should I use this medicine? Take this medicine by mouth with a glass of water. Follow the directions on the prescription label. Take your medicine at regular intervals. Do not take more medicine than directed. Talk to your secretary regarding the use of this medicine in children. Special care may be needed. This medicine has been used in children as young as 6. Persons over 65 years old may have a stronger reaction to this medicine and need smaller doses. What side effects may I notice from receiving this medicine? Side effects that you should report to your doctor or health career development associate as soon as possible: allergic reactions like skin rash, itching or hives, swelling of the face, lips, or tongue breathing problems changes in vision or hearing chest pain fast, irregular heartbeat swelling of legs or ankles Side effects that usually do not require medical attention (report to your doctor or health career development associate if they continue or are bothersome): dry mouth facial flushing nausea, vomiting stomach gas, pain tired, weak trouble sleeping What may interact with this medicine? herbal or dietary supplements local or general anesthetics medicines for high blood pressure medicines for prostate problems rifampin What if I miss a dose? If you miss a dose, take it as soon as you can. If it is almost time for your next dose, take only that dose. Do not take double or extra doses. Where should I keep my medicine? Keep out of the reach of children. Store at room temperature between 59 and 86 degrees F (15 and 30 degrees C). Protect from light. Keep container tightly closed. Throw away any unused medicine after the expiration date. What should I tell my health care provider before I take this medicine? They need to know if you have any of these conditions: heart problems like heart failure or aortic stenosis liver disease an unusual or allergic reaction to amlodipine, other medicines, foods, dyes, or preservatives or trying to get breast-feeding What should I watch for while using this medicine? Visit your doctor or health career development associate for regular check ups. Check your blood pressure and pulse rate regularly. Ask your health career development associate what your blood pressure and pulse rate should be, and when you should contact him or her. This medicine may make you feel confused, dizzy or lightheaded. Do not drive, use machinery, or do anything that needs mental alertness until you know how this medicine affects you. To reduce the risk of dizzy or fainting spells, do not sit or stand up quickly, especially if you are an older patient. Avoid alcoholic drinks; they can make you more dizzy. Do not suddenly stop taking amlodipine. Ask your doctor or health career development associate how you can gradually reduce the dose. Diphenoxylate Hydrochloride, Atropine Sulfate Oral tablet What is this medicine? ATROPINE; DIPHENOXYLATE (A troe peen dye fen OX i late) is used to treat diarrhea. How should I use this medicine? Take this medicine by mouth with a glass of water. Follow the directions on the prescription label. You can take the tablets with food. Take your doses at regular intervals. Do not take your medicine more often than directed. Once your diarrhea has been brought under control your doctor or health career development associate may reduce your doses. Talk to your secretary regarding the use of this medicine in children. Special care may be needed. Elderly patients may be more sensitive to the effects of this medicine. What side effects may I notice from receiving this medicine? Side effects that you should report to your doctor or health career development associate as soon as possible: allergic reactions like skin rash, itching or hives, swelling of the face, lips, or tongue bloated, swollen feeling breathing problems changes in vision fast, irregular heartbeat stomach pain Side effects that usually do not require medical attention (report to your doctor or health career development associate if they continue or are bothersome): headache loss of appetite mood changes nausea, vomiting numbness or tingling in the hands and feet What may interact with this medicine? alcohol antihistamines for allergy, cough and cold barbiturate medicines for inducing sleep or treating seizures certain medicines for depression, anxiety, or psychotic disturbances certain medicines for sleep medicines for movement abnormalities as in Parkinson's disease, or for gastrointestinal problems muscle relaxants narcotic medicines (opiates) for pain What if I miss a dose? If you miss a dose, take it as soon as you can. If it is almost time for your next dose, take only that dose. Do not take double or extra doses. Where should I keep my medicine? Keep out of the reach of children. This medicine can be abused. Keep your medicine in a safe place to protect it from theft. Do not share this medicine with anyone. Selling or giving away this medicine is dangerous and against the law. Store at room temperature between 15 and 30 degrees C (59 and 86 degrees F). Protect from light. Keep container tightly closed. Throw away any unused medicine after the expiration date. Discard unused medicine and used packaging carefully. Pets and children can be harmed if they find used or lost packages. What should I tell my health care provider before I take this medicine? They need to know if you have any of these conditions: bacterial food poisoning colitis dehydration Down's syndrome jaundice or liver disease an unusual or allergic reaction to atropine, diphenoxylate, other medicines, foods, dyes, or preservatives or trying to get breast-feeding What should I watch for while using this medicine? If your symptoms do not start to get better after taking this medicine for two days, check with your doctor or health career development associate, you may have a problem that needs further evaluation. Check with your doctor or health career development associate right away if you develop a fever or bloody diarrhea. You may get drowsy or dizzy. Do not drive, use machinery, or do anything that needs mental alertness until you know how this medicine affects you. Alcohol can increase possible drowsiness and dizziness. Avoid alcoholic drinks. Your mouth may get dry. Chewing sugarless gum or sucking hard candy, and drinking plenty of water may help. Contact your doctor if the problem does not go away or is severe. Drinking plenty of water can also help prevent dehydration that can occur with diarrhea. You have been given the following additional information: Hypertension, New (Begin Treatment) Diet, Low Salt (2Gm) Hydrocodone Bitartrate, Acetaminophen Oral tablet Ondansetron Oral disintegrating tablet Amlodipine Besylate Oral tablet Diphenoxylate Hydrochloride, Atropine Sulfate Oral tablet (Electronically signed by Oswaldo Baker Dr. 10/22/2016 8:39)
--- NOTE | 2016-10-22 08:39 | ED MED RECONCILIATION SUMMARY ---
Patient: LARRY DONOHUE Medication Reconciliation Report [facility] VisitID: [id number] [place] [address] 66y, F Registration Date/Time: 10/21/2016 Weight: 61.6 kg Height/Length: 66 in. BMI: 21.9 ALLERGIES: No Known Drug Allergy The patient's Home Medications are listed below: NONE. The source(s) of the original Home Medication information: patient The following Medications were given to the patient in the Emergency Department: Zofran [IVP] IVP 4 mg, administered: 10/21/2016 2:08:00 AM Labetalol [IVP] IVP 20 mg, administered: 10/21/2016 2:22:00 AM Zofran [IVP] IVP 4 mg, administered: 10/21/2016 2:41:00 AM Magnesium Hydroxide [PO] PO 400 Capsule, administered: 10/21/2016 3:11:00 AM Morphine [IVP] IVP 4 mg, administered: 10/21/2016 2:56:00 AM Labetalol [IVP] IVP 20 mg, administered: 10/21/2016 3:59:00 AM The following Medications were prescribed to the patient: Hydrocodone/APAP 5mg / 325mg: take 1 orally every 6 hours as needed for pain. Dispense twelve (12). No refill. -- Oswaldo Baker Dr. Zofran (orally disintegrating tablets) 4 mg: take 1 orally every 6 hours as needed for nausea and vomiting. Dispense ten (10). No refill. Substitution is permissible. -- Oswaldo Baker Dr. Amlodipine 5 mg: take 1 orally every 24 hours. Dispense fifteen (15). No refills. -- Oswaldo Baker Dr. Lomotil: take 2 tablets orally every 6 hours as needed for control of diarrhea until symptoms resolve. Do not take more than 8 tablets per day. Dispense sixteen (16). No refills. Substitution is permissible. -- Oswaldo Baker Dr.
--- NOTE | 2016-10-22 08:39 | ED MAR SUMMARY ---
..... Medication Administration Record [facility] [address] [place] [address] Patient: LARRY DONOHUE Visit ID: [id number] 66y, F Weight: 61.6 kg Height/Length: 66 in BMI: 21.9 ALLERGIES: No Known Drug Allergy Given 02:08 10/21/2016 Jenna Abel, Medication Administered: ZOFRAN [IVP] (ONDANSETRON HCL), Dose: 4 mg IVP over 2 minute(s), Site: #1 left forearm. Medication Ordered: Zofran IV 4 mg (NOW). Given 02:22 10/21/2016 Jenna Abel, Medication Administered: LABETALOL [IVP], Dose: 20 mg IVP over 2 minute(s), Site: #1 left forearm. Medication Ordered: Labetalol IV 20 mg (HIGH ALERT MEDICATION, NOW). Given 02:41 10/21/2016 Jenna Abel, Medication Administered: ZOFRAN [IVP] (ONDANSETRON HCL), Dose: 4 mg IVP over 2 minute(s), Site: #1 left forearm. Medication Ordered: Zofran IV 4 mg (NOW). Given 02:56 10/21/2016 Jenna Abel, Medication Administered: MORPHINE [IVP], Dose: 4 mg IVP over 2 minute(s), Site: #1 left forearm. Medication Ordered: Morphine IV 4 mg (HIGH ALERT MEDICATION, NOW). Given 03:11 10/21/2016 Jenna Abel, Medication Administered: MAGNESIUM HYDROXIDE [PO], Dose: 400 Capsule Tablets PO. Medication Ordered: - (Magnesium Oxide 400 mg PO x 1 now). Given 03:59 10/21/2016 Jenna Abel, Medication Administered: LABETALOL [IVP], Dose: 20 mg IVP over 2 minute(s), Site: #1 left forearm. Medication Ordered: Labetalol IV 20 mg (HIGH ALERT MEDICATION, NOW).
== END 2016-10-21 05:20 | disposition home or self-care (01) ==
LOC: ED SRH 01:39
DX: R07.89 Other chest pain (principal); I10 Essential (primary) hypertension
CPT/HCPCS: 90004; 90100; 90616; 91556; 92235; 92530; 92610; 92720; 94060; 95059